=== PATIENT | female | born 1990 | race Two or more races ===

== ENCOUNTER 2022-11-21 16:42 | Emergency (ER) | payer OTHER ==
[~2022-11-21] VITALS: Ht 162.6 cm; Wt 109.3 kg
[2022-11-21 18:07] LABS: Basophils # (auto) 0.1 10 ^3/uL (0-0.2); Basophils % (auto) 0.6 % (0.0-2.0); Eosinophils # (auto) 0.3 10 ^3/uL (0-0.8); Eosinophils % (auto) 2.8 % (0.0-7.0); Hematocrit 43.7 % (36.0-46.0); Hemoglobin 14.6 g/dL (12.2-16.2); Lymphocytes # (auto) 2.9 10 ^3/uL (0.4-5.4); Lymphocytes % (auto) 25.7 % (10.0-50.0); Mean Corpuscular Hemoglobin 30.6 pg (28.0-32.0); Mean Corpuscular Hgb Conc. 33.3 g/dL (32.0-36.0); Mean Corpuscular Volume 91.8 fL (80.0-100.0); Monocytes # (auto) 0.7 10 ^3/uL (0-1.3); Monocytes % (auto) 5.9 % (0.0-12.0); Neutrophils # (auto) 7.2 10 ^3/uL (1.6-8.6); Red Blood Cells 4.76 10^6/uL (4.0-5.20); Red Cell Distribution Width 13.3 % (11.8-14.3); White Blood Cell 11.2 10^3/uL (4.4-10.8)
[2022-11-21 18:17] LABS: Alanine Aminotransferase 36 U/L (7-40); Albumin 4.4 g/dL (3.2-4.8); Alkaline Phosphatase 58 U/L (46-116); Amylase 47 U/L (30-118); Anion Gap 8.4 (5-15); Aspartate Aminotransferase 20 U/L (13-40); BUN/Creatinine Ratio 6.8 (10.0-20.0); Blood Urea Nitrogen 5 mg/dL (9-23); Calcium 9.4 mg/dL (8.5-10.1); Carbon Dioxide 25.6 mmol/L (20-30); Chloride 106 mmol/L (98-107); Glucose 88 mg/dL (74-106); Lipase 37 U/L (12-53); Sodium 140 mmol/L (136-145)
[2022-11-21 18:18] LABS: Bilirubin, Total 1.1 mg/dL (0.2-1.0)
[2022-11-21 18:25] LABS: Urine Bacteria FEW /hpf (None Seen); Urine Blood Negative /uL (Negative); Urine Clarity Clear (Clear); Urine Color Yellow (Yellow); Urine Mucus FEW (None Seen); Urine Protein, UAD TRACE (Negative); Urine Specific Gravity 1.027 (1.001-1.035); Urine Urobilinogen Normal (Negative); Urine WBC 1 /hpf (0 - 5); Urine pH 5.5 (5.0-8.0)
[2022-11-21] MEDS ORDERED: ONDANSETRON ODT 4 MG TAB PO ONE (20:00)
[2022-11-21] MEDS ORDERED: HYDROcodone-ACET 5/325MG TAB PO ONE (20:00)
[2022-11-21] MEDS ORDERED: KETOROLAC TROMETH 30 MG/ML 1ML VIAL IV ONE (20:30)
[2022-11-21 20:32] VITALS: BP 126/87; PULSE 84; RESP 18; TEMP 98.4; O2SAT 95
[2022-11-21] MEDS ORDERED: IBUP1TAB5 PO (22:54)
== END 2022-11-21 23:24 | disposition home or self-care (01) ==
LOC: ER 16:42
DX: N83.202 Unspecified ovarian cyst, left side (principal); R10.32 Left lower quadrant pain; J45.909 Unspecified asthma, uncomplicated; Z98.890 Other specified postprocedural states
CPT/HCPCS: 36415; 76830; 76856; 80053; 81001; 81025; 82150; 83690; 85025; 96374; 99285; J1885